=== PATIENT | male | born 1965 | race African-American/Black ===

== ENCOUNTER 2016-09-12 21:27 | Emergency (ER) | payer BC ==
[2016-09-12 23:24] LABS: CALCIUM 8.5 mg/dL (8.5-10.1); CARBON DIOXIDE 29.1 mmol/L (21-32); CHLORIDE SERUM 99 mmol/L (98-107); CREATININE SERUM 1.3 mg/dL (0.7-1.3); GFR1 > 60 mL/min; GLUCOSE SERUM 111 mg/dL (74-106); POTASSIUM SERUM 4.2 mmol/L (3.5-5.1); SODIUM SERUM 136 mmol/L (136-145)
[2016-09-12 23:45] LABS: microscopic required? YES; urine erythrocyte 2+ (NEGATIVE)
[2016-09-13 00:57] VITALS: BP 161/93
== END 2016-09-13 00:59 | disposition home or self-care (01) ==
LOC: ED 21:27
PROVIDERS: Emergency Medicine
DX: N23 Unspecified renal colic (principal); N39.0 Urinary tract infection, site not specified
CPT/HCPCS: J1885; J2405; J3010; J7030